=== PATIENT | male | born 1965 | race Two or more races ===

== ENCOUNTER 2020-01-09 15:25 | Emergency (ER) | payer MEDICAID, SELFPAY ==
[2020-01-09 15:37] VITALS: BP 134/100; PULSE 113; RESP 18; TEMP 36.8; O2SAT 98
[2020-01-09 15:50] VITALS: PULSE 102; RESP 17; TEMP 36.4; O2SAT 98
--- NOTE | 2020-01-09 16:28 | ED.GENADULT ---
HPI - General Adult General Chief complaint: Psychiatric Symptoms Stated complaint: brought in by pd for major depression Time Seen by Provider: 01/09/20 16:11 Source: patient Limitations: no limitations History of Present Illness HPI narrative: 54 years old man brought to the emergency room by police because of depression. Patient is telling me that he was speaking to 1 of his colleagues that he is so depressed about selling his big house and moving to a smaller house recently and because of the COVID-19 pandemic, he does not have a job right now. But he have some money saved before and is able to survive on it. Patient denies any suicidal or homicidal ideation but feels sad and depressed about selling his house. Patient denies any fever, chills, nausea, vomiting, shortness of breath, chest pain, back pain, abdominal pain, urinary symptoms. Patient does not smoke or drink. Currently patient is mad about his colleague who called the police on him Review of Systems Review of Systems: Narrative: CONSTITUTIONAL: Denies fever, chills, or sweats. EYES: Denies visual changes, redness, or discharge. ENT: Denies rhinorrhea, congestion, sore throat, or otalgia. CARDIOVASCULAR: Denies chest pain, palpitations, or edema. RESPIRATORY: Denies cough or dyspnea. GASTROINTESTINAL: Denies abdominal pain, nausea, vomiting, or diarrhea. GENITOURINARY: Denies dysuria or hematuria. SKIN: Denies rash or itching. MUSCULOSKELETAL: Denies back pain, joint pain, or myalgia. NEUROLOGIC: Denies headache, numbness, or weakness. PSYCHIATRIC: Denies anxiety or depression. [facility] Social History Social History (Updated 01/09/20 @ 18:01 by Jordan Lee MD) Alcohol intake: never Substance use: never Living arrangements: alone Occupation/Education: unemployed Gender identity (if verbalized by the patient): Male Exam Narrative: Exam Narrative: General appearance: Well-developed, well-nourished Skin: Normal color Head: Normocephalic, nontraumatic Eyes: Clear conjunctiva ENT: Oropharynx normal, ears normal, nose normal Neck: Supple, nontender Chest and respiratory: Airway patent, no respiratory distress, no accessory muscle use Heart: Regular rate/rhythm Abdomen: Soft, nontender, no organomegaly, quiet bowel sounds Vascular: Normal peripheral pulses, normal capillary refill. Musculoskeletal: Normal range of motion, nontender back Neurologic: Alert and oriented ?3, [employer] is normal as tested, no gross motor deficit Course Course Emergency Course: Stable Vital Signs Vital signs: Vital Signs Temperature 36.8 C 01/09/20 15:37 Pulse Rate 113 H 01/09/20 15:37 Respiratory Rate 18 01/09/20 15:37 Blood Pressure 134/100 H 01/09/20 15:37 Pulse Oximetry 98 01/09/20 15:37 Temperature 36.4 C L 01/09/20 15:50 Pulse Rate 102 H 01/09/20 15:50 Respiratory Rate 17 01/09/20 15:50 Blood Pressure 134/100 H 01/09/20 15:37 Pulse Oximetry 98 01/09/20 15:50 Medical Decision Making [facility] Narrative Medical decision making narrative: Patient is depressed but not suicidal or homicidal. My plan to get labs, TSH, urine drug screen and UA to make sure that the patient has no medical condition causing his depression which is high likely secondary to the COVID-19 pandemic and selling his house. Differential Diagnosis Differential Diagnosis: Anxiety, depression, hypothyroidism, electrolyte imbalance Vital Signs Vital Signs: Vital Signs Temperature 36.8 C 01/09/20 15:37 Pulse Rate 113 H 01/09/20 15:37 Respiratory Rate 18 01/09/20 15:37 Blood Pressure 134/100 H 01/09/20 15:37 Pulse Oximetry 98 01/09/20 15:37 Temperature 36.4 C L 01/09/20
[2020-01-09 16:48] LABS: Basophils Percent Auto 0.4 % (0.2-1.2); Eosinophils Percent Auto 0.3 % (0-4.4); Hemoglobin 15.7 g/dL (14.0-18.0); Immature Granulocyte Absolute 0.03 K/mm3 (0.00-0.031); Immature Granulocyte Percent A 0.3 % (0-0.5); Lymphocytes Absolute Auto 1.85 K/mm3 (0.9-3.2); Lymphocytes Percent Auto 19.4 % (18.3-44.2); Mean Corpuscular HGB Conc 32.7 g/dl (32-36); Mean Corpuscular Hemoglobin 28.4 pg (26-34); Mean Platelet Volume 9.6 fl (7.4-10.4); Monocytes Absolute Auto 0.7 K/mm3 (0.1-0.6); Neutrophils Absolute Auto 6.9 K/mm3 (1.3-6.7); Neutrophils Percent Auto 72.6 % (45.5-73.1); Platelet Count Result 316 k/mm3 (150-375); Red Blood Count 5.52 M/mm3 (4.6-6.20); Red Cell Distribution Width 13.3 % (11.5-14.5); White Blood Count 9.5 K/mm3 (4.5-10.0)
[2020-01-09 16:59] LABS: Alanine Aminotransferase 21 U/L (4-50); Albumin Level 4.5 g/dL (3.5-5.1); Alkaline Phosphatase 70 U/L (38-126); Anion Gap 8 mmol/L (8-16); Aspartate Amino Transferase 24 U/L (17-59); Bilirubin,Total 0.4 mg/dL (0.2-1.3); Blood Urea Nitrogen 12 mg/dL (9-20); Calcium 9.3 mg/dL (8.4-10.2); Carbon Dioxide 27 mmol/L (22-30); Chloride 103 mmol/L (98-107); Estimated CRCL calculation 116 ml/min; Estimated Glomerular Filt Rate > 60; Glucose 101 mg/dL (75-110); Potassium 3.9 mmol/L (3.4-5.0); Sodium 138 mmol/L (137-145)
[2020-01-09 17:29] LABS: Thyroid Stimulating Hormone 0.865 uIU/mL (0.465-4.680)
[2020-01-09 17:35] LABS: Add Urine Microscopic? YES; Amorphous Sediment Urine Few; Appearance Urine Clear (Clear); Bilirubin Urine Negative (Negative); Blood Urine Negative (Negative); Color Urine Amber (Yellow); Glucose Urine UA Negative (Negative); Ketones Urine Trace mg/dL (Negative); Leukocyte Esterase Ur Negative LEU/UL (Negative); Mucus Urine Heavy /lpf; Nitrate Urine Negative (Negative); Protein Urine 1+ mg/dL (Negative); Squamous Epithelial Cell Urine Rare /hpf (Few)
[2020-01-09 17:36] LABS: Specific Grav Ur 1.032 (1.001-1.035)
[2020-01-09 17:50] LABS: Amphetamine Screen Urine Negative (Negative); Barbiturate Screen Urine Negative (Negative); Benzodiazepines Screen Urine Negative (Negative); Cannabinoid Screen Urine Negative (Negative); Cocaine Screen Urine Negative (Negative); Methadone Screen Urine Negative (Negative); Opiate Screen Urine Negative (Negative); Phencyclidine Screen Urine Negative (Negative)
== END 2020-01-09 18:11 | disposition home or self-care (01) ==
PROVIDERS: Emergency Provider Emergency Medicine; PCP Family Medicine
DX: F32.9 Major depressive disorder, single episode, unspecified (principal)
CPT/HCPCS: 36415; 80053; 80307; 81001; 84443; 85025; 99283; J2543

== ENCOUNTER 2020-02-20 21:36 | Emergency (ER) | payer MEDICAID, SELFPAY ==
[2020-02-20] VITALS (8 sets, daily range): BP systolic 101–137; BP diastolic 66–79; PULSE 77–98; RESP 16–20; TEMP 36.6; O2SAT 91–98
--- NOTE | 2020-02-20 21:40 | PC.NURSE ---
Friend that can pick him up if needed.
--- NOTE | 2020-02-20 21:59 | ED.GENADULT ---
HPI - General Adult General Chief complaint: Anxiety <Shannon Grajeda MD - Last Filed: 02/21/20 13:38> Stated complaint: anxiety <Shannon Grajeda MD - Last Filed: 02/21/20 13:38> Time Seen by Provider: 02/20/20 21:46 <Shannon Grajeda MD - Last Filed: 02/21/20 13:38> Source: patient <Shannon Grajeda MD - Last Filed: 02/21/20 13:38> History of Present Illness HPI narrative: Patient is a 54 y/o male complaining anxiety and depression for several month. He states that he lost alot of money when he sold his previous house under [employer] and he recently lost his job. All these situations are making him depressed. He states that he saw his PCP and was prescribed Zoloft, but he does not want to take it. He denies any suicidal or homicidal ideation. <Shannon Grajeda MD - Last Filed: 02/21/20 13:38> Related Data Allergies/adverse reactions: Allergies Allergy/AdvReac Type Severity Reaction Status Date / Time No Known Allergies Allergy Verified 02/20/20 22:08 <Shannon Grajeda MD - Last Filed: 02/21/20 13:38> Review of Systems Constitutional: Constitutional: Denies chills, Denies fever(s), Denies headache(s) and Denies weakness <Shannon Grajeda MD - Last Filed: 02/21/20 13:38> Eyes: Eyes: Denies blurry vision <Shannon Grajeda MD - Last Filed: 02/21/20 13:38> ENT: Denies headache(s) and Denies neck pain <Shannon Grajeda MD - Last Filed: 02/21/20 13:38> Cardiovascular: Cardiovascular: Denies chest pain and Denies dyspnea <Shannon Grajeda MD - Last Filed: 02/21/20 13:38> Respiratory: Respiratory: Denies cough and Denies dyspnea <Shannon Grajeda MD - Last Filed: 02/21/20 13:38> Gastrointestinal: Gastrointestinal: Denies abdominal pain, Denies diarrhea, Denies nausea and Denies vomiting <Shannon Grajeda MD - Last Filed: 02/21/20 13:38> Genitourinary: Genitourinary: Denies hematuria and Denies dysuria <Shannon Grajeda MD - Last Filed: 02/21/20 13:38> Musculoskeletal: Musculoskeletal: Denies back pain and Denies neck pain <Shannon Grajeda MD - Last Filed: 02/21/20 13:38> Neurologic: Denies headache(s) and Denies weakness <Shannon Grajeda MD - Last Filed: 02/21/20 13:38> Psychiatric: Psychiatric: Reports depression, Reports mood swings and Reports paranoia <Shannon Grajeda MD - Last Filed: 02/21/20 13:38> [facility] Social History Social History: Social History Alcohol intake: never Substance use: never Gender identity (if verbalized by the patient): Male <Shannon Grajeda MD - Last Filed: 02/21/20 13:38> Exam Const: General: no acute distress and well developed <Shannon Grajeda MD - Last Filed: 02/21/20 13:38> Orientation/consciousness: oriented to person, oriented to place, oriented to time and patient oriented x3 <Shannon Grajeda MD - Last Filed: 02/21/20 13:38> HENMT: Head: normocephalic <Shannon Grajeda MD - Last Filed: 02/21/20 13:38> Ears: external ears normal <Shannon Grajeda MD - Last Filed: 02/21/20 13:38> General nose exam: Normal external nose present <Shannon Grajeda MD - Last Filed: 02/21/20 13:38> Eyes: General: appearance normal, both eyes and all related structures <Shannon Grajeda MD - Last Filed: 02/21/20 13:38> Conjunctivae: conjunctivae normal <Shannon Grajeda MD - Last Filed: 02/21/20 13:38> Neck: Neck: normal visual inspection and full ROM <Shannon Grajeda MD - Last Filed: 02/21/20 13:38> Chest: Chest palpation & inspection: normal inspection of the chest and no tenderness <Shannon Grajeda MD - Last Filed: 02/21/20 13:38> Resp: Effort & Inspection: normal respiratory effort <Shannon Grajeda MD - Last Filed: 02/21/20 13:38> Auscultation: clear to auscultation bilaterally <Shannon Grajeda MD - Last Filed: 02/21/20 13:38> Cardio: Rate: regular rate <Shannon Grajeda MD - Last Filed: 02/21/20 13:38> Rhythm: regular rhythm <Shannon Grajeda MD - Last Filed: 02/21/20 13:38> GI: GI Palp: No abdominal tenderness
[2020-02-20] MEDS: LORazepam (*CRX) 1 MG TABLET PO (22:14)
[2020-02-20 22:20] LABS: Basophils Absolute Auto 0.1 K/mm3 (0.0-0.1); Basophils Percent Auto 0.6 % (0.2-1.2); Eosinophils Absolute Auto 0.1 K/mm3 (0-0.3); Eosinophils Percent Auto 0.7 % (0-4.4); Hematocrit 45.1 % (42.0-52.0); Hemoglobin 14.9 g/dL (14.0-18.0); Immature Granulocyte Absolute 0.02 K/mm3 (0.00-0.031); Immature Granulocyte Percent A 0.2 % (0-0.5); Lymphocytes Absolute Auto 2.15 K/mm3 (0.9-3.2); Lymphocytes Percent Auto 26.1 % (18.3-44.2); Mean Corpuscular Hemoglobin 28.9 pg (26-34); Mean Corpuscular Volume 87.4 fl (80-100); Monocytes Absolute Auto 0.8 K/mm3 (0.1-0.6); Neutrophils Absolute Auto 5.1 K/mm3 (1.3-6.7); Neutrophils Percent Auto 62.4 % (45.5-73.1); Platelet Count Result 319 k/mm3 (150-375); Red Blood Count 5.16 M/mm3 (4.6-6.20); Red Cell Distribution Width 13.1 % (11.5-14.5); White Blood Count 8.2 K/mm3 (4.5-10.0)
[2020-02-20 22:32] LABS: Alanine Aminotransferase 16 U/L (4-50); Albumin Level 4.1 g/dL (3.5-5.1); Alkaline Phosphatase 72 U/L (38-126); Anion Gap 7 mmol/L (8-16); Aspartate Amino Transferase 22 U/L (17-59); Bilirubin,Total 0.4 mg/dL (0.2-1.3); Blood Urea Nitrogen 14 mg/dL (9-20); Calcium 9.2 mg/dL (8.4-10.2); Carbon Dioxide 27 mmol/L (22-30); Chloride 104 mmol/L (98-107); Estimated CRCL calculation 103 ml/min; Estimated Glomerular Filt Rate > 60; Glucose 112 mg/dL (75-110); Potassium 4.2 mmol/L (3.4-5.0); Sodium 138 mmol/L (137-145)
[2020-02-20 22:43] LABS: Add Urine Microscopic? YES; Appearance Urine Clear (Clear); Bacteria Urine Trace /hpf; Bilirubin Urine Negative (Negative); Blood Urine Negative (Negative); Color Urine Yellow (Yellow); Glucose Urine UA Negative (Negative); Ketones Urine 1+ mg/dL (Negative); Leukocyte Esterase Ur Negative LEU/UL (Negative); Mucus Urine Heavy /lpf; Nitrate Urine Negative (Negative); Protein Urine 1+ mg/dL (Negative); Squamous Epithelial Cell Urine Rare /hpf (Few); WBC Urine 0-3 /hpf
[2020-02-20 22:53] LABS: Specific Grav Ur 1.033 (1.001-1.035)
[2020-02-20] MEDS: LORazepam INJ (*CRX) 2 MG/ML VIAL IM (22:58)
[2020-02-20] MEDS: HALOPERIDOL LACTATE 5 MG/ML VIAL IM (22:58)
[2020-02-21] VITALS (28 sets, daily range): BP systolic 90–117; BP diastolic 59–80; PULSE 66–80; RESP 14–18; TEMP 36.6; O2SAT 93–99
[2020-02-21 00:31] LABS: Amphetamine Screen Urine Negative (Negative); Barbiturate Screen Urine Negative (Negative); Benzodiazepines Screen Urine Negative (Negative); Cannabinoid Screen Urine Negative (Negative); Cocaine Screen Urine Negative (Negative); Methadone Screen Urine Negative (Negative); Opiate Screen Urine Negative (Negative); Phencyclidine Screen Urine Negative (Negative)
[2020-02-21 01:50] LABS: Thyroid Stimulating Hormone Reflex 0.778 uIU/mL (0.465-4.68)
--- NOTE | 2020-02-21 02:01 | PC.NURSE ---
Crisis here to evaluate patient. Patient wakes up to speak and then falls asleep. Patient unable to be assessed at this time since patient keeps falling asleep when asked questions. gizzard peeler and ERP notified.
--- NOTE | 2020-02-21 07:29 | PC.NURSE ---
Sleeping. Awaiting assess from crisis.
--- NOTE | 2020-02-21 08:16 | PC.NURSE ---
Pt arousable but quickly falls back to sleep. Mumbles incoherently when awake.
--- NOTE | 2020-02-21 09:03 | PC.NURSE ---
Awake, ambulatory in [facility].
== END 2020-02-21 11:20 | disposition home or self-care (01) ==
PROVIDERS: Emergency Medicine; Emergency Provider General Practice; PCP Family Medicine
DX: F32.9 Major depressive disorder, single episode, unspecified (principal)
CPT/HCPCS: 36415; 80053; 80307; 81001; 84443; 85025; 96372; 99284; A9270; J1630; J2060

== ENCOUNTER 2020-10-11 14:11 | Emergency (ER) | payer SELFPAY ==
[2020-10-11 14:26] VITALS: BP 126/85; PULSE 102; RESP 19; O2SAT 97
--- NOTE | 2020-10-11 14:37 | ED.PSYCH ---
HPI - Psych General Chief Complaint: Psychiatric Symptoms Stated Complaint: self harm Time Seen by Provider: 10/11/20 14:31 Source: patient Mode of arrival: ambulatory Limitations: no limitations History of Present Illness HPI Narrative: Patient is a 55-year-old male brought in due depression since last year. Friend brought the patient in because he was worried. Patient states that he has no intention of hurting himself, he is not having any suicidal thoughts, it is against my religious Yazidism . Patient states that he has been feeling depressed since he lost $400,000, which is all his savings, due to a bad financial deal. Patient denies hitting his head on the wall as described by his friend. The friend that brought the patient is an odd character, at times he was not making sense. Related Data Allergies Allergy/AdvReac Type Severity Reaction Status Date / Time No Known Allergies Allergy Verified 10/11/20 14:34 Review of Systems Review of Systems: All systems reviewed & are unremarkable except as noted in HPI and below Constitutional: Constitutional: Denies body ache(s), Denies chills, Denies excessive sweating, Denies fatigue, Denies fever(s), Denies headache(s), Denies lethargy, Denies malaise, Denies weakness and Denies weight loss Eyes: Eyes: Denies blurry vision, Denies change in vision and Denies loss of vision ENT: Denies dizziness, Denies ear discharge, Denies headache(s), Denies lip swelling, Denies epistaxis, Denies nasal congestion, Denies neck pain, Denies throat swelling and Denies tongue swelling Cardiovascular: Cardiovascular: Denies chest pain, Denies chest pain at rest, Denies chest pain with activity, Denies diaphoresis, Denies rapid heart rate, Denies edema, Denies irregular heart rhythm, Denies lightheadedness, Denies palpitations, Denies dyspnea and Denies dyspnea on exertion Respiratory: Respiratory: Denies chest congestion, Denies cough, Denies hemoptysis, Denies dyspnea and Denies dyspnea on exertion Gastrointestinal: Gastrointestinal: Denies abdominal pain, Denies melena, Denies hematochezia, Denies diarrhea, Denies nausea, Denies vomiting and Denies hematemesis Musculoskeletal: Musculoskeletal: Denies abnormal gait, Denies deformity, Denies joint swelling, Denies limited range of motion, Denies neck pain and Denies numbness Neurologic: Denies Abnormal speech present, Denies abnormal gait, Denies confusion, Denies dizziness, Denies headache(s), Denies focal weakness, Denies loss of vision, Denies numbness, Denies Other visual disturbances, Denies Sensory deficit (Neuro) and Denies weakness Psychiatric: Psychiatric: Denies confusion, Denies auditory hallucinations and Denies homicidal ideation Endocrine: Endocrine: Denies cold intolerance, Denies excessive sweating, Denies fatigue, Denies heat intolerance and Denies palpitations Hematologic/Lymphatic: Hematologic/Lymphatic: Denies easy bleeding and Denies easy bruising Allergic/Immunologic: Allergic/Immunologic: Denies lip swelling, Denies throat swelling and Denies tongue swelling [facility] Social History Social History Alcohol intake: never Substance use: never Substance use type: does not use Gender identity (if verbalized by the patient): Male Exam Const: General: cooperative, healthy appearing, comfortable, no acute distress, well developed, alert and awake; No confusion Orientation/consciousness: oriented to person, oriented to place, oriented to time, patient oriented x3 and No confusion Limitations: no limitations HENMT: Head: normal to inspection, normocephalic and atraumatic Ears: hearing grossly normal bilaterally, TM normal on the right and TM normal on the left General nose exam: Normal external nose present, Normal nares present and No nasal discharge present Face and sinus: normal facial exam Mouth: Yes Normal oral and palatal mucosa present, Yes lip normal, Yes tongue normal a
[2020-10-11 15:07] LABS: Add Urine Microscopic? YES; Appearance Urine Cloudy (Clear); Bilirubin Urine Negative (Negative); Blood Urine Negative (Negative); Color Urine Amber (Yellow); Glucose Urine UA Negative (Negative); Ketones Urine Trace mg/dL (Negative); Leukocyte Esterase Ur Negative LEU/UL (Negative); Mucus Urine Heavy /lpf; Nitrate Urine Negative (Negative); Protein Urine 1+ mg/dL (Negative); Specific Grav Ur 1.027 (1.001-1.035); Squamous Epithelial Cell Urine Rare /hpf (Few); WBC Urine 0-3 /hpf
[2020-10-11 15:52] LABS: Amphetamine Screen Urine Negative (Negative); Barbiturate Screen Urine Negative (Negative); Benzodiazepines Screen Urine Negative (Negative); Cannabinoid Screen Urine Negative (Negative); Cocaine Screen Urine Negative (Negative); Methadone Screen Urine Negative (Negative); Opiate Screen Urine Negative (Negative); Phencyclidine Screen Urine Negative (Negative)
[2020-10-11 16:51] LABS: Basophils Absolute Auto 0.1 K/mm3 (0.0-0.1); Basophils Percent Auto 0.6 % (0.2-1.2); Eosinophils Absolute Auto 0.1 K/mm3 (0-0.3); Eosinophils Percent Auto 0.7 % (0-4.4); Hematocrit 49.8 % (42.0-52.0); Immature Granulocyte Absolute 0.04 K/mm3 (0.00-0.031); Immature Granulocyte Percent A 0.5 % (0-0.5); Lymphocytes Percent Auto 23.9 % (18.3-44.2); Mean Corpuscular HGB Conc 32.1 g/dl (32-36); Mean Corpuscular Volume 87.1 fl (80-100); Mean Platelet Volume 9.8 fl (7.4-10.4); Monocytes Absolute Auto 0.9 K/mm3 (0.1-0.6); Monocytes Percent Auto 10.1 % (2.6-8.5); Neutrophils Absolute Auto 5.6 K/mm3 (1.3-6.7); Neutrophils Percent Auto 64.2 % (45.5-73.1); Platelet Count Result 334 k/mm3 (150-375); Red Blood Count 5.72 M/mm3 (4.6-6.20); Red Cell Distribution Width 13.5 % (11.5-14.5); White Blood Count 8.8 K/mm3 (4.5-10.0)
[2020-10-11 17:07] LABS: Ethanol < 10 mg/dL (<10)
[2020-10-11 17:08] LABS: Alanine Aminotransferase 14 U/L (4-50); Albumin Level 4.3 g/dL (3.5-5.1); Alkaline Phosphatase 76 U/L (38-126); Anion Gap 7 mmol/L (8-16); Aspartate Amino Transferase 31 U/L (17-59); Bilirubin,Total 0.4 mg/dL (0.2-1.3); Blood Urea Nitrogen 12 mg/dL (9-20); Calcium 9.7 mg/dL (8.4-10.2); Carbon Dioxide 33 mmol/L (22-30); Chloride 104 mmol/L (98-107); Estimated CRCL calculation 118 ml/min; Estimated Glomerular Filt Rate > 60; Glucose 87 mg/dL (75-110); Potassium 4.3 mmol/L (3.4-5.0); Sodium 144 mmol/L (137-145)
[2020-10-11] MEDS: LORazepam (*CRX) 1 MG TABLET 2 MG PO (17:36)
[2020-10-11 17:39] LABS: Thyroid Stimulating Hormone 0.912 uIU/mL (0.465-4.680)
[2020-10-11] MEDS: OLANZapine 10 MG INJ VIAL 5 MG IM (18:23)
[2020-10-11] MEDS: WATER, STERILE FOR INJECTION 10 ML VIAL XX (18:24)
--- NOTE | 2020-10-11 18:51 | PC.NURSE ---
pt hitting his head with his hands and is upset at this time. I talked to him to try and calm him down. pt expresses feelings about being at a low point in his life and does not know how he is going to come back from this.
--- NOTE | 2020-10-11 21:17 | PC.NURSE ---
pt currently falling asleep. will check on pt's ride home at later time. pt has vehicle here, but unable to drive per md.
[2020-10-11 22:32] VITALS: PULSE 60; RESP 16; O2SAT 100
== END 2020-10-11 22:36 | disposition home or self-care (01) ==
PROVIDERS: Emergency Provider Emergency Medicine; PCP Family Medicine
DX: F32.9 Major depressive disorder, single episode, unspecified (principal)
CPT/HCPCS: 36415; 80053; 80307; 81001; 84443; 85025; 96372; 99284; A9270

== ENCOUNTER 2020-12-25 19:38 | Emergency (ER) | payer OTHER, SELFPAY ==
--- NOTE | ~2020-12-25 | CT_ITS ---
EXAMINATION: CT brain wo con DATE: 12/25/2020 20:23 INDICATION: Confusion TECHNIQUE: Computed tomography (CT) of the head was performed without intravenous contrast. Sagittal and coronal reconstructions were performed. The mA was adjusted according to patient size. Iterative reconstruction technique was employed. The dose-length product was 605.33 mGy-cm. COMPARISON: None FINDINGS: No acute intracranial hemorrhage, acute infarction or abnormal extra axial fluid collection. Symmetri c prominence of the subarachnoid spaces overlying the convexities consistent with mild age-appropriat e diffuse cerebral volume loss. Ventricles are normal and symmetric. No mass/mass effect. The orbits, paranasal sinuses and mastoid air cells are normal. IMPRESSION: 1. No acute intracranial process. Reviewed, dictated and finalized at location A.
--- NOTE | ~2020-12-25 | XR_ITS ---
EXAMINATION: XR chest 1V portable DATE: 12/25/2020 20:07 INDICATION: Confusion TECHNIQUE: frontal view of the chest was obtained. COMPARISON: None FINDINGS: Mild elevation of the left hemidiaphragm. Subtle opacity at the lateral left lower lung zone which co uld represent atelectasis or pneumonia. Right lung is clear. No pulmonary edema, pleural effusion or pneumothorax. The cardiomediastinal silhouette is normal. IMPRESSION: 1. Subtle opacity left lower lung zone which could represent atelectasis accounting for the mild elev ation of the left hemidiaphragm or pneumonia. Reviewed, dictated and finalized at location A. IMPRESSION: 1. Subtle opacity left lower lung zone which could represent atelectasis accoun ting for the mild elevation of the left hemidiaphragm or pneumonia.
[2020-12-25 19:33] VITALS: BP 114/74; PULSE 96; RESP 18; TEMP 37.3; O2SAT 97
[2020-12-25 20:10] LABS: Basophils Percent Auto 0.4 % (0.2-1.2); Eosinophils Absolute Auto 0.1 K/mm3 (0-0.3); Eosinophils Percent Auto 1.2 % (0-4.4); Hematocrit 42.1 % (42.0-52.0); Hemoglobin 13.7 g/dL (14.0-18.0); Immature Granulocyte Absolute 0.02 K/mm3 (0.00-0.031); Immature Granulocyte Percent A 0.3 % (0-0.5); Lymphocytes Absolute Auto 1.68 K/mm3 (0.9-3.2); Lymphocytes Percent Auto 24.9 % (18.3-44.2); Mean Corpuscular HGB Conc 32.5 g/dl (32-36); Mean Corpuscular Hemoglobin 28.5 pg (26-34); Mean Corpuscular Volume 87.7 fl (80-100); Mean Platelet Volume 9.6 fl (7.4-10.4); Monocytes Absolute Auto 0.6 K/mm3 (0.1-0.6); Monocytes Percent Auto 8.9 % (2.6-8.5); Neutrophils Absolute Auto 4.3 K/mm3 (1.3-6.7); Neutrophils Percent Auto 64.3 % (45.5-73.1); Platelet Count Result 261 k/mm3 (150-375); Red Cell Distribution Width 13.4 % (11.5-14.5); White Blood Count 6.8 K/mm3 (4.5-10.0)
[2020-12-25 20:17] LABS: Lactic Acid Reflex 1.8 mmol/L (0.7-2.1)
[2020-12-25 20:18] LABS: Alanine Aminotransferase 16 U/L (4-50); Albumin Level 3.9 g/dL (3.5-5.1); Alkaline Phosphatase 57 U/L (38-126); Anion Gap 8 mmol/L (8-16); Aspartate Amino Transferase 23 U/L (17-59); Bilirubin,Total 0.2 mg/dL (0.2-1.3); Blood Urea Nitrogen 13 mg/dL (9-20); Calcium 9.2 mg/dL (8.4-10.2); Carbon Dioxide 26 mmol/L (22-30); Chloride 103 mmol/L (98-107); Estimated Glomerular Filt Rate > 60; Ethanol < 10 mg/dL (<10); Glucose 105 mg/dL (65-110); Potassium 4.1 mmol/L (3.4-5.0); Sodium 137 mmol/L (137-145)
[2020-12-25 20:31] VITALS: BP 115/74; PULSE 89; RESP 22; O2SAT 97
[2020-12-25 20:48] LABS: Thyroid Stimulating Hormone 0.948 uIU/mL (0.465-4.680)
[2020-12-25] MEDS: SODIUM CHLORIDE 0.9% IV 1,000 ML 150 ML IV CONT (21:04)
--- NOTE | 2020-12-25 21:06 | PC.NURSE ---
Pt hitting head with hand after this RN tells him that we will need to start a new IV. RN tells pt to stop hitting his head and pt is compliant.
[2020-12-25 21:10] VITALS: BP 112/76; PULSE 84; RESP 15
[2020-12-25 21:16] VITALS: BP 112/81; PULSE 82; RESP 20; O2SAT 100
[2020-12-25 21:19] LABS: Amphetamine Screen Urine Negative (Negative); Barbiturate Screen Urine Negative (Negative); Benzodiazepines Screen Urine Negative (Negative); Cannabinoid Screen Urine Negative (Negative); Cocaine Screen Urine Negative (Negative); Methadone Screen Urine Negative (Negative); Opiate Screen Urine Negative (Negative); Phencyclidine Screen Urine Negative (Negative)
--- NOTE | 2020-12-25 21:43 | PC.NURSE ---
spoke to crisis, they are aware of the patient and have accessed him multiple times. per crisis the hitting the head although is not normal behavior it is for this patient, they will have someone do a phone interview with him do to covid.
[2020-12-25 21:46] VITALS: BP 125/83; PULSE 85; RESP 26; O2SAT 100
--- NOTE | 2020-12-25 22:45 | PC.NURSE ---
Yoly from Crisis called back to say that she spoke with the PD and she feels he will need to be placed. Nadja said she will be out in the morning with involuntary paperwork.
--- NOTE | 2020-12-25 22:50 | PC.NURSE ---
pt moved to room 15 w/ a sitter at bedside. pt keeps walking out of room. pt redirected back to the room.
--- NOTE | 2020-12-25 22:56 | PC.NURSE ---
patient moved to 15. pt has a sitter at bedside for elopement risk. pt given a sandwich, chips and water.
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
[2020-12-26 01:35] VITALS: BP 118/72; PULSE 74; RESP 16; O2SAT 100
--- NOTE | 2020-12-26 02:12 | ECG_ITS ---
Measurements Intervals [place] Rate: 94 P: 61 NV: 149 QRS: 47 QRSD: 81 T: 44 QT: 330 QTc: 413 Interpretive Statements SINUS RHYTHM EARLY PRECORDIAL R/S TRANSITION BORDERLINE ECG Electronically Signed On 12-26-2020 7:48:18 CDT by Marek Weeks D.O.
[2020-12-26 06:37] VITALS: BP 118/65; PULSE 71; TEMP 36.7; O2SAT 100
[2020-12-26 13:17] VITALS: BP 122/80; PULSE 100; RESP 16; TEMP 36.6; O2SAT 100
== END 2020-12-26 14:14 ==
PROVIDERS: Family Medicine; Emergency Provider Emergency Medicine; PCP Family Medicine
DX: F22 Delusional disorders (principal); U07.1 COVID-19
CPT/HCPCS: 36415; 70450; 71045; 80053; 80307; 83605; 84443; 85025; 93005; 96360; 96361; 99285; J7030